=== PATIENT | male | born 1980 | race Caucasian/White ===

== ENCOUNTER 2020-12-05 17:48 | Emergency (ER) | payer MEDICARE ==
[~2020-12-05] VITALS: Ht 188 cm; Wt 100.0 kg
--- NOTE | 2020-12-05 17:59 | NUR ---
PT BIB EMS DUE TO BEING OUT OF PSYCH MEDS FOR 2 DAYS. PT DENIES PHYSICAL COMPLAINT OR SI/HI. PT STATES HE FEELS DEPRESSED. PT STATING HE WANTS TO BE IN A LONGTERM. PT RECENTLY MOVED TO [place] FROM [facility].
--- NOTE | 2020-12-05 18:15 | NUR ---
PSYCH BRASS BOBBIN WINDER BEDSIDE
--- NOTE | 2020-12-05 18:42 | NUR ---
KAMILA RN: SAWYER BANERJEE RN, [facility] HAS NO ADMIT CAPABILITY THIS EVENING. WILL FAX TO OTHER FACILITIES WHEN UDS RESULTED.
--- NOTE | 2020-12-05 18:48 | NUR ---
GLEN REQUESTED FROM [facility].
[2020-12-05] MEDS ORDERED: ZIPRASIDONE 20 MG INJ IM ONE ×4 (19:00→23:31)
[2020-12-05] MEDS ORDERED: LORazepam 2 MG/ML, 1ML IM ONE (19:00)
[2020-12-05] MEDS ORDERED: LORazepam 2 MG/ML, 1ML ONE (19:01)
[2020-12-05 19:12] LABS: AMPHETAMINE SCREEN, URINE Positive (Negative); BARBITURATE SCREEN, URINE Negative (Negative); BENZODIAZEPINE SCREEN, URINE Negative (Negative); CANNABINOID SCREEN, URINE Positive (Negative); COCAINE SCREEN, URINE Negative (Negative); METHADONE SCREEN, URINE Negative (Negative); OPIATE SCREEN, URINE Negative (Negative)
[2020-12-05 19:42] LABS: BASOPHILS % (AUTO) 1 % (0-1); EOSINOPHILS % (AUTO) 0 % (1-7); LYMPHOCYTES % (AUTO) 11 % (22-44); MEAN CORPUSCULAR HEMOGLOBIN 34.5 pg (27.5-34.5); MEAN PLATELET VOLUME 7.9 fL (7.4-10.4); MONOCYTES % (AUTO) 4 % (2-9); NEUTROPHILS % (AUTO) 85 % (42-75); PLATELET COUNT 294 x10^3/uL (130-400); RED BLOOD COUNT 5.05 x10^6/uL (4.38-5.82)
--- NOTE | 2020-12-05 19:47 | NUR ---
PT ON LEGAL HOLD NOW, SO PROTOCOL FOLLOWED, AND ROOM SECURED, AND SITTER AT BEDSIDE, AND ROOM LOCKED, PTS BELONGINGS AND CLOTHES PLACED SECURELY IN BAGS AND LOCKED IN PSYCH LOCKER FOR SECURITY. BELONGINGS INCLUDE PTS PANTS, TSHIRT, SWEATSHIRT, TENNIS SHOES, AND HIS WALLET WITH CONTENTS. PT VISUALIZED THE ITEMS BEING SECURED, AND ARE IN BIN 38 AND UNDER LOCK.
[2020-12-05 19:49] LABS: ALBUMIN 4.1 g/dL (3.4-5.0); ANION GAP 10 mmol/L (5-15); CALCIUM 8.9 mg/dL (8.5-10.1); CHLORIDE 106 mmol/L (98-107)
[2020-12-05 19:57] LABS: ALANINE AMINOTRANSFERASE 20 U/L (12-78); ALKALINE PHOSPHATASE 76 U/L (45-117); BILIRUBIN,TOTAL 0.4 mg/dL (0.2-1.0); CREATININE 1.02 mg/dL (0.7-1.3); SALICYLATE LEVEL 5.3 mg/dL (2.8-20.0); TOTAL PROTEIN 8.1 g/dL (6.4-8.2)
[2020-12-05 19:59] LABS: MD SCAN
[2020-12-05] MEDS ORDERED: LORazepam 1MG TABLET ONE ×2 (20:04→22:36)
--- NOTE | 2020-12-05 20:18 | NUR ---
FAXED ALL DOCUMENTS TO POSSIBLE ACCEPTING FACILITY. AWAITING ACCEPTANCE.
[2020-12-05] MEDS ORDERED: HYDROCORTISONE CRM 1%, 30GM TP PRN (20:30)
[2020-12-05] MEDS ORDERED: LORazepam 1MG TABLET PO ONE ×2 (20:30→23:00)
[2020-12-05 21:07] VITALS: BP 132/88
--- NOTE | 2020-12-05 21:14 | NUR ---
PT RESTING COMFORTABLY AFTER ALL MEDICATIONS ORDERED BY MD. FOOD TRAY GIVEN TO PT, GOOD AERATION AND OXYGENATION AND SITTER OUTSIDE ROOM.
--- NOTE | 2020-12-05 21:50 | NUR ---
PT REPORT GIVEN TO [facility]. PT REMAINS CALM, AND HAS EATEN HIS SANDWICH, AND IS MORE CALM AND LESS ANXIOUS AT THIS TIME. PREPARING FOR TRANSFER.
--- NOTE | 2020-12-05 22:26 | NUR ---
Transport set up with [facility] for patient to go to [facility]. Accepting Dr. Hollis. Medicare insurance so no need for MTM. ETA from [facility] [phone].
--- NOTE | 2020-12-05 23:16 | NUR ---
PT INCREASED AGITATION AND PACING IN ROOM. MD ADVISED AND ONE MORE MG OF ATIVAN ORDERED PO. PT REQUESTED THAT IT BE IV DOSE, AND REORIENTED TO THE PROPER ROUTE PER THE MD ORDER. PT ACCEPTED THE MED. WAITING FOR EMS TRANSFER TO BEHAVIORAL UNIT.
--- NOTE | 2020-12-05 23:40 | NUR ---
PT REMAINS ANXIOUS, AND MD ORDERED 10MG MORE OF GEODON, SEE EMAR. PT MEDICATED AND REMAINS CALM AND REDIRECTIONAL. SITTER OUTSIDE OF ROOM. AWAITING EMS TRANSPORT.
--- NOTE | 2020-12-06 00:09 | NUR ---
EMS HERE TO TRANSPORT PT TO [facility]. PT AMBULATORY, CALM AND IN GOOD SPIRITS BECAUSE OF TRANSFER.
== END 2020-12-06 00:15 ==
LOC: ED 18:15
DX: F23 Brief psychotic disorder (principal); F39 Unspecified mood [affective] disorder; F15.10 Other stimulant abuse, uncomplicated; F12.10 Cannabis abuse, uncomplicated; F17.200 Nicotine dependence, unspecified, uncomplicated; Z76.0 Encounter for issue of repeat prescription
CPT/HCPCS: 36415; 80053; 80299; 80307; 80320; 84443; 85025; 96372; 99285; J2060; J3486; 80329; G0480